=== PATIENT | male | born 1945 | race Two or more races ===

== ENCOUNTER 2024-09-15 05:32 | Emergency (ER) | payer OTHER ==
[~2024-09-15] VITALS: Ht 188 cm; Wt 73.5 kg
[2024-09-15] MEDS ORDERED: 0.9 % SODIUM CHLORIDE 1,000 ML IV STA (06:41)
[2024-09-15] MEDS ORDERED: HYOSCYAMINE SULFATE 0.125 MG TAB.SUBL SL STA (06:41)
[2024-09-15] MEDS ORDERED: KETOROLAC TROMETHAMINE 30 MG VIAL IV STA (06:42)
[2024-09-15] MEDS ORDERED: HYOSCYAMINE SULFATE 0.125 MG TAB.SUBL ONE (06:47)
[2024-09-15] MEDS ORDERED: KETOROLAC TROMETHAMINE 30 MG VIAL ONE (06:47)
[2024-09-15 07:23] LABS: HEMATOCRIT 39.3 % (39.0-48.0); HEMOGLOBIN 13.4 g/dL (13-16.00); MEAN CORPUSCULAR HEMOGLOBIN 30.8 pg (27.00-32.0); MEAN CORPUSCULAR HGB CONC 34.3 g/dl (32.0-36.0); PLATELET COUNT 229 K/uL (150-450); RED BLOOD COUNT 4.36 M/uL (4.00-6.00); RED CELL DISTRIBUTION WIDTH 14.9 % (11.5-14.5)
[2024-09-15 07:52] LABS: CALCIUM 9.2 mg/dL (8.5-10.1); GFR 72.46; POTASSIUM 4.05 mEq/L (3.5-5.1)
[2024-09-15 07:56] LABS: INR 0.99; PARTIAL THROMBOPLASTIN TIME 27.5 SECONDS (22.0-34.0); PROTHROMBIN TIME 10.8 SECONDS (9.0-11.5)
== END 2024-09-15 10:39 | disposition home or self-care (01) ==
LOC: ER 05:32
DX: K80.20 Calculus of gallbladder without cholecystitis without obstruction (principal); K57.32 Diverticulitis of large intestine without perforation or abscess without bleeding